=== PATIENT | female | born 1955 | race Caucasian/White ===

== ENCOUNTER 2025-01-25 10:47 | Outpatient (AMB) | payer MEDICARE, SELFPAY ==
--- NOTE | 2025-01-25 11:09 | A.OFFVIS_ITS ---
Intake Visit Reasons: headache HPI Comments Details: The patient is a 69 year old individual presenting for evaluation of new-onset severe headaches. The patient has no prior history of being a headache patient, aside from migraines in their 20s, and reports the current headaches began in the spring. The headaches occur several times a week, a total of about 10 days a month, and can be debilitating, lasting for half a day to an entire day. The patient describes the pain as a bilateral, pressure-type sensation located around the eyes, in the mastoid area, and near the temporomandibular joint (TMJ), but not on the top of the head. The headaches are often present upon waking, are exacerbated by bending over or straining, and are alleviated by ice. Associated symptoms include nausea, for which the patient takes ondansetron, and a feeling of weakness or being rubbery and shaky; the patient denies photophobia or phonophobia. 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 Due to the headaches, the patient's oncologist ordered a brain MRI, which was negative. The patient also recently developed hypertension, which may be related to the carcinoid or lanreotide, and was started on amlodipine. The patient reports experiencing constant flushing and does not feel the blood pressure has gone down. The patient denies a history of heart disease or diabetes. The patient has a sensitivity to NSAIDs which cause petechiae and has not tried any other medication for the headaches. Review of Systems Narrative Constitutional:? Complain of fatigue and malaise HEENT: Complain of dryness of eyes Cardiovascular:? Complain of palpitation Respiratory:?No cough, shortness of breath, wheezing, or hemoptysis. Gastrointestinal:? Complain of diarrhea Genitourinary:? Complain of frequent urination and incontinence Musculoskeletal:? Complain of joint pain back pain and neck pain Neurological:? Complain of headaches and dizziness Psychiatric:? Complain of anxiety Endocrine:?No heat/cold intolerance, polydipsia, polyuria, or hair/skin changes. Hematologic/Lymphatic:?No easy bruising, bleeding, or lymphadenopathy. Integumentary (Skin):?No rash, lesions, itching, or color changes. Allergic/Immunologic:?No seasonal allergies, hives, or recurrent infections. Physical Exam Neuro Other: Mental Status: Alert and oriented to person, place, and time. Normal attention. Normal spontaneous speech, fluency, and comprehension. No obvious issues with mood and memory. Affect is appropriate. Cranial Nerves: CN II: Visual pickens full to confrontation, visual acuity intact. CN III, IV, : Pupils equal, round, reactive to light and accommodation. Extraocular movements are normal. CN V: Facial sensation is normal. CN VII: Facial movements symmetrical. CN VIII: Hearing intact to bedside conversation is normal. CN IX, X: Palate elevates symmetrically. CN XI: Shoulder shrug and head turn symmetrical. CN XII: Tongue midline without atrophy or fasciculations. Motor: Bulk and tone normal in all extremities. No significant muscle weakness in arms and legs. No drift. Reflexes: Deep tendon reflexes 1+ and symmetric. Plantar response down-going bilaterally. Coordination: [id number] is ok Gait and Station: No obvious gait abnormality. No ataxia or instability. Extrapyramidal: Full facial expressions and blinking. No rigidity. Movements are appropriate with no tremor or abnormality. Speech: Normal; no dysarthria or tremor. Assessment & Plan Assessment & Plan (1) Migraine without aura: Comment: MRI brain [facility] at [facility] in September 2024: Mild to mod MVD Code(s): G43.009 - Migraine without aura, not intractable, without status migrainosus Category: Medical Qualifiers: Status migrainosus presence: without status migrainosus Intractability: not intractable Qualified Code(s): G43.009 - Migraine without aura, not intractable, without status migrainosus (2) Cerebral microvascular disease: Code(s): I67.89 - Other cerebrovascular disease Category: Medical Plan Impression: 1. Migraine without aura 2. Cerebral microvascular ischemic disease Recommendations: 1. Sumatriptan 50 mg 1 a day as needed 2. Education about migraine and its management 3. Control of vascular risk factors including blood pressure. A baby aspirin daily can also help to minimize microvascular disease Medications: New sumatriptan succinate 50 mg orally qd prn for headache PRN; do not exceed 4 doses per 24 hrs 10 tabs 5RF migraine headache Coding Level of Care Code New Pt Level 4 (63069) Diagnoses Migraine without aura and without status migrainosus, not intractable G43.009 Status migrainosus presence: without status migrainosus Intractability: not intractable Cerebral microvascular disease I67.89
--- OUTSIDE RECORDS SUMMARY | 2025-01-25 13:33 | XMS_ITS ---
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 Past Plans ONCOLOGY INFUSION THERAPY Plan Name Start Date Discontinue Date Treatment Medications Discontinue Reason Plan Provider [facility] OCTREOTIDE LAR 20MG (SANDOSTATIN LAR) 03/19/2022 04/11/2023 octreotide (SandoSTATIN LAR) Therapy Complete Jimbo Morfin MD Radiation Treatments * No radiation treatments are documented for this patient in [facility]. Treatments may have been administered in another system.
--- OUTSIDE RECORDS SUMMARY | 2025-01-25 13:33 | XMS_ITS | Clinical Summary ---
Author Organization [facility] Address [address] [place] [id number] Care Team Providers Care Continuity Manager Name Role Phone Anam Agata SEJAL Primary Care Provider Allergies Active Allergy Reactions Criticality Noted Date Comments Nsaids 08/21/2021 Medications Medication Sig Dispensed Refills Start Date End Date Status vitamin D3 (cholecalciferol) 25 MCG (1000 UT) tablet Take 2 tablets (50 mcg total) by mouth daily. 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 Abdominal lymphadenopathy 08/21/2021 Family History Medical History Relation Name Comments Cancer Brother Testicular cancer Brother Lymphoma Father Dementia Mother Relation Name Status Comments Brother Father Mother Social History Tobacco Use Types Packs/Day Years Used Date Smoking Tobacco: Never Smokeless Tobacco: Never Tobacco Cessation:Counseling Given: Not Answered Alcohol Use Standard Drinks/Week Comments Not Currently 0 (1 standard drink = 0.6 oz pur e alcohol) stopped 2020 Sex and Gender Information Value Date Recorded Sex Assigned at Female 04/30/2022 2:54 PM EST Gender Identity Not on file Sexual Orientation Not on file Job Start Date Occupation Industry Not on file Not on file Not on file Last Filed Vital Signs Vital Sign Reading Time Taken Comments Blood Pressure 126/84 10/01/2023 11:42 AM EDT Pulse 88 10/01/2023 11:42 AM EDT Temperature 36.3 C (97.4 F) 10/01/2023 11:42 AM EDT Respiratory Rate 18 03/19/2022 9:27 AM EST Oxygen Saturation 100% 10/01/2023 11:42 AM EDT Inhaled Oxygen Concentration - - Weight 79.8 kg (176 lb) 10/01/2023 11:42 AM EDT Height 162.6 cm (5' 4 ) 05/09/2022 11:39 AM EST Body Mass Index 30.21 05/09/2022 11:39 AM EST Plan of Treatment Health Maintenance Due Date Last Done Comments Hepatitis C Screening 1955 COVID-19 Vaccine (#1) 1958 Pneumococcal Vaccine (1 of 2 - PCV) 1959 Depression Screening 1965 BMI Counseling 1971 Preventative Health Evaluation 1971 DTap / Tdap / Td (1 - Tdap) 1972 Shingrix-Zoster Vaccine (1 of 2) 1972 Colon Cancer Screening (Colonoscopy) 1998 Breast Cancer Screening (Mammogram) 2003 Fall Risk Assessment 2018 Osteoporosis Screening (DEXA Scan) 2018 Influenza Vaccine (#1) 2024 RSV Adult > 60+ Yrs or Pregn ant (1 - 1-dose 75+ series) 2028 Hepatitis B Vaccines Aged Out No long er eligible based on patient's age to complete this topic RSV Ped < 20 months Aged Out No longe r eligible based on patient's age to complete this topic Care Teams Continuity Manager Relationship Specialty Start Date End Date Agata Mendieta NP [address] [place] [id number] PCP - General Oncology 03/14/22
== END 2025-01-25 11:25 | disposition home or self-care (01) ==
LOC: HO.HSM 10:48
PROVIDERS: PCP Nurse Practitioner Family; Visit Provider Psychiatry & Neurology Neurology
DX: G43.009 Migraine without aura, not intractable, without status migrainosus (principal); I67.89 Other cerebrovascular disease
CPT/HCPCS: 99204

== ENCOUNTER → 2025-01-25 10:47 | Outpatient (BNVA) | payer MEDICARE, SELFPAY | PROVIDERS: PCP Nurse Practitioner Family; Visit Provider Psychiatry & Neurology Neurology | DX: G43.009 Migraine without aura, not intractable, without status migrainosus (principal); I67.89 Other cerebrovascular disease | CPT/HCPCS: 99202 ==